=== PATIENT | male | born 2000 | race Caucasian/White ===

== ENCOUNTER 2019-10-26 13:15 | Outpatient (CLI) | payer SELFPAY ==
[~2019-10-26] VITALS: Ht 177 cm; Wt 78.7 kg
[~2019-10-26 13:15] MED LIST changes: -CEPH-507 PO; -TRAM50TA3 PO
[2019-10-26 13:28] VITALS: BP 125/78
--- NOTE | 2019-10-26 13:56 | Diagnostic Imaging Report ---
INDICATION: Preop for orchiectomy. Time of exam 1:55 PM No prior studies are available for comparison. The heart size is normal. The pulmonary vascularity is unremarkable. The lungs are clear. No infiltrate, effusion or pneumothorax is detected. IMPRESSION: No acute cardiopulmonary process is detected. Dictated by: Dictated on workstation # [id number]
[2019-10-26 13:59] LABS: BASOPHILS # (AUTO) 0.1 10^3/uL (0.0-0.1); BASOPHILS % (AUTO) 1 % (0-10); EOSINOPHILS # (AUTO) 0.6 10^3/uL (0.0-0.3); EOSINOPHILS % (AUTO) 12 % (0-10); HEMATOCRIT 42 % (40-54); HEMOGLOBIN 13.4 G/DL (13.3-17.7); LYMPHOCYTES # (AUTO) 1.6 X 10^3 (1.0-4.0); LYMPHOCYTES % (AUTO) 30 % (12-44); MEAN CORPUSCULAR HEMOGLOBIN 29 PG (25-34); MEAN CORPUSCULAR HGB CONC 32 G/DL (32-36); MEAN CORPUSCULAR VOLUME 91 FL (80-99); MEAN PLATELET VOLUME 10.3 FL (7.4-10.4); MONOCYTES # (AUTO) 0.5 X 10^3 (0.0-1.0); MONOCYTES % (AUTO) 9 % (0-12); NEUTROPHILS # (AUTO) 2.6 X 10^3 (1.8-7.8); NEUTROPHILS % (AUTO) 48 % (42-75); PLATELET COUNT 298 10^3/uL (130-400); RED CELL DISTRIBUTION WIDTH 13.3 % (10.0-14.5); WHITE BLOOD COUNT 5.3 10^3/uL (4.3-11.0)
[2019-10-26 14:20] LABS: ALANINE AMINOTRANSFERASE 19 U/L (0-55); ALBUMIN 4.6 GM/DL (3.2-4.5); ALKALINE PHOSPHATASE 50 U/L (40-136); BILIRUBIN,TOTAL 0.3 MG/DL (0.1-1.0); BUN/CREATININE RATIO 9; CALCIUM 9.3 MG/DL (8.5-10.1); CARBON DIOXIDE 26 MMOL/L (21-32); CHLORIDE 104 MMOL/L (98-107); CREATININE SERUM 1.03 MG/DL (0.60-1.30); GFR ESTIMATED > 60; GLUCOSE 91 MG/DL (70-105); POTASSIUM 4.3 MMOL/L (3.6-5.0); SODIUM 139 MMOL/L (135-145); TOTAL PROTEIN 7.3 GM/DL (6.4-8.2)
[2019-10-29] MEDS ORDERED: TRAM50TA3 PO (08:24)
[2019-10-29] MEDS ORDERED: CEPH-507 PO (08:24)
== END 2019-10-26 15:30 | disposition home or self-care (01) ==
LOC: PREOP 13:15
PROVIDERS: ATTEND Urology
DX: Z01.812 Encounter for preprocedural laboratory examination (principal); Z01.811 Encounter for preprocedural respiratory examination; N50.89 Other specified disorders of the male genital organs
CPT/HCPCS: 36415; 71046; 80053; 82105; 83615; 84702; 85025

== ENCOUNTER → 2019-10-26 | Outpatient (CLI) | payer SELFPAY ==
[~2019-10-26] MED LIST: CEPH-507 PO; HYDR-3730 PO; TRAM50TA3 PO
--- NOTE | 2019-10-26 11:39 | Diagnostic Imaging Report ---
PROCEDURE: US Scrotum. TECHNIQUE: Multiple real-time grayscale images were obtained over the scrotum in various projections bilaterally. INDICATION: Relatively painless palpable mass in the upper right testis. Corresponding to the provided clinical history there is a solid heterogeneous relatively hypoechoic mass in the upper pole of the right testicular parenchyma, that mass measures 1.9 x 1.7 x 2.2 cm, and is suspicious for malignancy. Urological consultation needed if not already performed. The contralateral left testicle is homogenous normal in echotexture and showing normal color Doppler blood flow. No testicular calcifications are found. No extratesticular pathology. Epididymis are unremarkable. IMPRESSION: A solid hypoechoic intraparenchymal vascularized upper pole right testicular mass 2.2 cm suspicious for malignancy, urological consultation needed. Dictated by: Dictated on workstation # [id number]
== END ==
LOC: RAD 10:09
PROVIDERS: ATTEND Internal Medicine
DX: N50.811 Right testicular pain (principal)
CPT/HCPCS: 76870

== ENCOUNTER → 2019-11-13 | Outpatient (CLI) | payer SELFPAY ==
[~2019-11-13] MED LIST changes: +CATHETER FLUSH 10 ML SYR IV PRN; +CEPH-507 PO; +HOLD METFORMIN - RECEIVED CONTRAST 20 ML VIAL IV SCH; +IOHEXOL 350 MG/ML 100 ML (OMNIPAQUE 350) VIAL IV ONE; +NS 100 ML (IVPB) BAG IV ONE; +TRAM50TA3 PO
--- NOTE | 2019-11-13 16:08 | Diagnostic Imaging Report ---
PROCEDURE: CT chest with contrast, CT abdomen and pelvis with and without contrast. TECHNIQUE: Pre and post intravenous contrast axial imaging of the abdomen and pelvis and post contrast axial imaging of the chest were performed. Auto Exposure Controls were utilized during the CT exam to meet ALARA standards for radiation dose reduction. INDICATION: History of testicular cancer. COMPARISON: 10/13/2014. FINDINGS: CT CHEST: The heart is normal in size. There is no pericardial effusion. There is a subcarinal mass which measures up to 5.0 x 4.7 cm on axial imaging, and 3.8 cm craniocaudal. This lies just to the right and anterior to the esophagus, superior to the left atrium. No pleural effusion or pneumothorax is seen. No pulmonary nodules or consolidation are seen. No central endobronchial lesion is seen. CT ABDOMEN/PELVIS: The liver demonstrates no focal lesions. The spleen appears normal. The pancreas appears normal. The adrenal glands are unremarkable. There is a circumscribed hypodense lesion in the inferior left kidney measuring 1 cm, most likely a cyst. No hydronephrosis or enhancing masses are seen. The bowel loops are nondistended without obstruction seen. There is moderate stool in the colon. No free air or free fluid is seen. The appendix is not seen. The stomach is moderately distended with fluid and ingested material. No pelvic or retroperitoneal adenopathy is seen. There is scarring along the right inguinal region. IMPRESSION: 1. Subcarinal mass in the mediastinum measuring up to 5 cm. This is concerning for metastasis given the patient's history. 2. No masses or lymphadenopathy seen in the abdomen/pelvis. Dictated by: Dictated on workstation # [id number]
== END ==
LOC: RAD 14:12
PROVIDERS: ATTEND Internal Medicine Hematology & Oncology
DX: C62.11 Malignant neoplasm of descended right testis (principal); R22.2 Localized swelling, mass and lump, trunk
CPT/HCPCS: 71260; 74178

== ENCOUNTER 2019-11-21 13:23 | Outpatient (RCR) | payer SELFPAY ==
[~2019-11-21] VITALS: Ht 177 cm; Wt 78.7 kg
[~2019-11-21 13:23] MED LIST changes: -HYDR-83 PO; -RT-ALBUTEROL SULF 2.5 MG/3 ML PRE-MIX VIAL INH ONE
[2019-11-22] MEDS ORDERED: HYDR-3812 PO (13:59)
== END 2020-02-19 | disposition home or self-care (01) ==
LOC: PREOP 13:23
PROVIDERS: ATTEND Surgery
DX: Z01.818 Encounter for other preprocedural examination (principal)

== ENCOUNTER → 2019-11-21 | Outpatient (CLI) | payer SELFPAY ==
[~2019-11-21] MED LIST changes: -CATHETER FLUSH 10 ML SYR IV PRN; -HOLD METFORMIN - RECEIVED CONTRAST 20 ML VIAL IV SCH; +HYDR-83 PO; -IOHEXOL 350 MG/ML 100 ML (OMNIPAQUE 350) VIAL IV ONE; -NS 100 ML (IVPB) BAG IV ONE; +RT-ALBUTEROL SULF 2.5 MG/3 ML PRE-MIX VIAL INH ONE
== END ==
LOC: RT 08:02
PROVIDERS: ATTEND Internal Medicine Hematology & Oncology
DX: C62.11 Malignant neoplasm of descended right testis (principal)
CPT/HCPCS: 94060; 94726; 94729

== ENCOUNTER 2019-11-22 12:41 | Day surgery (SDC) | payer SELFPAY ==
[2019-11-22] VITALS (7 sets, daily range): BP systolic 101–114; BP diastolic 58–80
[~2019-11-22] VITALS: Ht 177 cm; Wt 78.7 kg
[2019-11-22] MEDS ORDERED: ceFAZolin 2 GM IV Premixed 50 ML IV ONE (13:00)
[2019-11-22] MEDS ORDERED: LACTATED RINGERS 1,000 ML IV SCH (13:30)
--- NOTE | 2019-11-22 13:57 | Progress Note-Pre Operative ---
Pre-Operative Progress Note H&P Reviewed The H&P was reviewed, patient examined and no changes noted. Date Seen by Provider: November 22, 2019 Time Seen by Provider: 13:55 Date H&P Reviewed: November 22, 2019 Time H&P Reviewed: 13:50 Pre-Operative Diagnosis: Testicular cancer DORIS WISDOM ELECTRICAL AUTOMATION ENGINEER November 22, 2019 13:57
[2019-11-22] MEDS ORDERED: HYDR-83 PO (13:59)
--- NOTE | 2019-11-22 13:59 | Discharge Inst-Surgical ---
D/C Lap Instructions-KIDO Reconcile Patient Problems Problems Reviewed?: Yes New, Converted, or Re-Newed RX: RX on Chart Follow Up Appt in 2 weeks Activity as tolerated No driving for 24 hours No driving while on pain medications Incentive Spirometry use every 2 hours while awake Regular Diet Symptoms to Report: Fever over 101 degree F, Nausea/Vomiting Infection Signs and Symptoms to report: Increased redness, Foul odor of wound, Increased drainage Bathing instructions: May shower Operative Area Clean/Dry; Keep incision clean/dry If any problems/questions: Contact your physician or go to Emergency Room DORIS WISDOM APRN November 22, 2019 13:59
[2019-11-22] MEDS ORDERED: ONDANSETRON 4 MG/2 ML (SDV) Z0FRAN IVP PRN ×2 (14:00→16:45)
[2019-11-22] MEDS ORDERED: ACETAMINOPHEN 325 MG TABLET PO PRN (14:00)
[2019-11-22] MEDS ORDERED: morphine INJ 10 MG/ML 1ML (SYR OR VIAL) IVP PRN (14:00)
[2019-11-22] MEDS ORDERED: HYDROcodone/APAP 5 MG/325 MG (LORTAB) TAB PO ONE (14:00)
--- OUTSIDE RECORDS SUMMARY | 2019-11-22 14:02 | XMS REPORT | Clinical Summary ---
Author Author [facility] Organization [facility] Address Unknown Phone Unavailable Care Team Providers Care Buffet Waiter/Waitress Name Role Phone Liana Cedillo MD Unavailable Immanuel Reza MD Unavailable Rajni Jauregui DO PCP Source Comments Some departments are not documenting in the electronic medical record. If you d o not see the information that you expected, contact Release of Information in [facility] [employer] Information Management department at [phone] for further assistan ce in locating additional records.[facility] Allergies No Known Allergies Medications End Date Status Medication Sig Dispensed Refills Start Date Active ibuprofen (ADVIL PO) Take by 0 mouth. Active tramadol HCl (TRAMADOL Take by 0 PO) mouth. 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); Encounter for fertility preservation procedure 11/19/2019 Orders Only Oncology Dany Horne MD 11/15/2019 Office Visit Oncology Telehealth Dany Horne MD Navigation Assessment 11/15/2019 Telephone Oncology 11/13/2019 Hospital Radiology Encounter from Last 3 Months Family History Medical History Relation Name Comments Stroke Father Relation Name Status Comments Father Social History Date Tobacco Use Types Packs/Day Years Used Never Smoker Smokeless Tobacco: Never Used Drinks/Week oz/Week Comments Alcohol Use No Alcohol Habits Answer Date Recorded How often do you have a drink containing alcohol? Never 08/08/2018 How many drinks containing alcohol do you have on No t asked a typical day when you are drinking? How often do you have six or more drinks on one Not asked occasion? Sex Assigned at Date Recorded Male 11/19/2019 11:46 AM CDT Industry Job Start Date Occupation Not on file Not on file Not on file Travel End Travel History Travel Start No recent travel history available. Last Filed Vital Signs Reading Time Taken Comments Vital Sign 107/74 11/15/2019 3:44 PM CDT Blood Pressure 74 11/15/2019 3:44 PM CDT Pulse - - Temperature - - Respiratory Rate - - Oxygen Saturation - - Inhaled Oxygen Concentration 78.5 kg (173 lb) 11/15/2019 3:44 PM CDT Per patient Weight 177.8 cm (5' 10") 08/08/2018 11:37 AM TOWEL ROLLING MACHINE OPERATOR Height 24.82 08/08/2018 11:37 AM TOWEL ROLLING MACHINE OPERATOR Body Mass Index Plan of Treatment Health Maintenance Due Date Last Done Comments HPV VACCINES (1 - Male 2009 2-dose series) HIV SCREENING 2013 DTAP/TDAP VACCINES (1 - 2016 Tdap) HEPATITIS C SCREENING 2016 PHYSICAL (COMPREHENSIVE) 2016 EXAM INFLUENZA VACCINE 04/03/2020 MENINGOCOCCAL VACCINE Aged Out No longer eligib le based on patient's age to (Isis GERARD) complete this topic Procedures Comments Procedure Name Priority Date/Time Associated Diag nosis CT CHEST/ABD/PEL EXTERNAL Routine 11/13/2019 IMAGING 12:00 AM CDT from Last 3 Months Results * CT CHEST/ABD/PEL EXTERNAL IMAGING (11/13/2019 12:00 AM CDT) Specimen Narrative Performed At This order has been auto finalized and does not contain a result. from Last 3 Months Advance Directives Patient Meeting Facilitator Explanation Type Date Recorded Advance Directive/DPOA
--- OUTSIDE RECORDS SUMMARY | 2019-11-22 14:03 | XMS REPORT | Encounter Summary ---
Author Author [facility] Organization [facility] Address Unknown Phone Unavailable Care Team Providers Care Veterinary Assistant Technician Name Role Phone Liana Cedillo MD Unavailable Immanuel Reza MD Unavailable Rajni Jauregui DO PCP Reason for Visit * Reason Comments Navigation Assessment Encounter Details Care Team Description Date Type Department Dany Horne MD [address] [place] [address] [phone] Navigation Assessment 11/15/[address] [address] Social History Date Tobacco Use Types Packs/Day [...] occasion? Sex Assigned at Date Recorded Male Industry Job Start Date Occupation Not on file Not on file Not on file Travel End Travel History Travel Start No recent travel history available. documented as of this encounter Miscellaneous Notes * Telephone Encounter - Lexy Guzman RN - 11/15/2019 8:53 AM CDT Navigation Intake Assessment Document Patient Name: Nate Jeong : 2000 Insurance: Self Pay Future Appointments Date Time Provider Department Center 11/15/2019 4:20 PM Dany Horne MD [facility] Exam Diagnosis & Reason for Visit: Testicular Cancer Second Opinion Physician Info: Referring Physician: Liana Cedillo Patient Care Team: Rajni Jauregui DO as PCP - General (Internal Medicine) Liana Cedillo MD (Hematology & Oncology) Immanuel Reza MD (Urology) Location of Films: PACS Location of Pathology: Report emailed with records History of Present Illness: Mr. Jeong is a 19 year old found to have a right domenica ticular mass suspicious for malignancy and treated with right orchiectomy 0. 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 Current recom mendation is for chemotherapy, however pre-treatment CT identified a 5 cm subcar inal mass prompting Dr. Cedillo to request second opinion from Dr. Horne. Abdom en and pelvis were noted to be without signs of metastatic disease. Tumor marke rs did decrease after orchiectomy but AFP remains elevated at 15, beta-hcg is cu rrently <3. Patient reports no significant medical history. Patient reports that he vapes occasionally. Pathology: 10-29-19 Testis, right, radical orchiectomy - Mixed nonseminomatous g erm cell tumor, comprising embryonal carcinoma, yolk sac tumor, teratoma and foc al synctiotrophoblastic; tumor confined to testis without rete testis invasion; margins negative for neoplasm. Imagin11-13-19 CT CAP W/WO - Impression: 1. Subcarinal mass in the mediasti num measuring up to 5 cm. This is concerning for metastasis given the patient's history. 2. No masses or lymphadenopathy seen in the abdomen/pelvis. Tumor Markers: 11-12-19 11-08-19 10-26-19 AFP 15.6 85.4 Hcg Tumor <3 140 LDH 126 Prior Treatment (XRT, Surgery, Chemotherapy): Right Orchiectomy 10-29-19 Comments: This RN spoke to patient and scheduled Telehealth visit. Telehealth education provided. Gave contact information for further questions or concerns. Appointment information sent to patient via mail. CAROLE Regalado NEEDS Assessment: Genetic Counseling: Genetic Assessment: No identified risk factors Nutrition: Recent Weight Loss Without Trying?: No Social & Financial: Social and Financial Assessment: Insurance Concerns;Financial Concerns;Reports a dequate support system Tobacco assessment last 30 days: Patient has not used tobacco products within th e last 30 days Social and Financial Intervention: Referral placed to Financial Counselor;Financ ial Counselor completed screening and patient education Spiritual & Emotional: Spiritual and Emotional Assessment: Reports adequate support system Physical: Fall Risk: None identified Communication: Communication Barrier: No Onc Fertility: Onc Fertility Assessment: Not applicable Additional Education: Additional Education Documented: No documented in this encounter Plan of Treatment Not on filedocumented as of this encounter Visit Diagnoses Not on filedocumented in this encounter
--- OUTSIDE RECORDS SUMMARY | 2019-11-22 14:03 | XMS REPORT | Encounter Summary ---
Author Author [facility] Organization [facility] Address Unknown Phone Unavailable Care Team Providers Care Pickler Helper Name Role Phone Liana Cedillo MD Unavailable Immanuel Reza MD Unavailable Rajni Jauregui DO PCP Reason for Visit * Reason Comments Follow Up * Consult, Test & Treat (Routine) Referred By Contact Referred To Contact Status Reason Specialty Diagnoses / Procedures Liana Cedillo MD [address] [place] [address] [place] [address] [place] [id number] No Auth Needed Oncology Diagnoses Testicular cancer Encounter Details Care Team Description [place] [address] [place] [address] [phone] 11/15/2019 Office Visit The [facility] [address] [address] Social History Date Tobacco Use Types Packs/Day [...] history available. documented as of this encounter Last Filed Vital Signs Reading Time Taken Comments Vital Sign 107/74 11/15/2019 3:44 PM CDT Blood Pressure 74 11/15/2019 3:44 PM CDT Pulse - - Temperature - - Respiratory Rate - - Oxygen Saturation - - Inhaled Oxygen Concentration 78.5 kg (173 lb) 11/15/2019 3:44 PM CDT Per patient Weight - - Height 24.82 08/08/2018 11:37 AM TEST PREPARER Body Mass Index documented in this encounter Plan of Treatment Not on filedocumented as of this encounter Visit Diagnoses Not on filedocumented in this encounter
--- OUTSIDE RECORDS SUMMARY | 2019-11-22 14:03 | XMS REPORT | Encounter Summary ---
Author Author [facility] Organization [facility] Address Unknown Phone Unavailable Care Team Providers Care Core Driller Name Role Phone Liana Cedillo MD Unavailable Immanuel Reza MD Unavailable Rajni Jauregui DO PCP Reason for Referral * Consult, Test & Treat (Urgent) Referred By Contact Referred To Contact Status Reason Specialty Diagnoses / Procedures Dany Horne MD [address] [place] [address] [employer] [address] [place] [address] Pending Review Specialty Services Reproductive Diagnoses Required Care 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 documented as of this encounter Plan of Treatment Order Schedule Name Type Priority Associated Diag noses Ordered: 11/19/2019 SEMEN COLLECTION FOR Pathology Routine Nonsemino matous germ cell CRYOPRESERVATION tumor of testicle (HCC) Encounter for fertility preservation procedure Order Schedule Name Type Priority Associated Diag noses Ordered: 11/19/2019 AMB REFERRAL TO FERTILITY Outpatient Routine Nons eminomatous germ cell PRESERVATION Referral tumor of testicle ( HCC) Encounter for fertility preservation procedure documented as of this encounter Visit Diagnoses Diagnosis Nonseminomatous germ cell tumor of test icle (HCC) Encounter for fertility preservation pr ocedure documented in this encounter
--- OUTSIDE RECORDS SUMMARY | 2019-11-22 14:03 | XMS REPORT | Encounter Summary ---
Author Author [facility] Organization [facility] Address Unknown Phone Unavailable Care Team Providers Care Party Plan Sales Consultant Name Role Phone No Pcp, Na PCP Unavailable Encounter Details Care Team Description Date Type Department 11/13/2019 [facility] [address] [address] Social History Date Tobacco Use Types Packs/Day [...] history available. documented as of this encounter Medications at Time of Discharge Start Date End Date Medication Sig Dispensed Refills ibuprofen (ADVIL PO) Take by 0 mouth. tramadol HCl (TRAMADOL Take by 0 PO) mouth. documented as of this encounter Plan of Treatment Not on filedocumented as of this encounter Procedures Comments Procedure Name Priority Date/Time Associated Diag nosis CT CHEST/ABD/PEL EXTERNAL Routine 11/13/2019 IMAGING 12:00 AM CDT documented in this encounter Results * CT CHEST/ABD/PEL EXTERNAL IMAGING (11/13/2019 12:00 AM CDT) Specimen Narrative Performed At This order has been auto finalized and does not contain a result. documented in this encounter Visit Diagnoses Not on filedocumented in this encounter
--- OUTSIDE RECORDS SUMMARY | 2019-11-22 14:03 | XMS REPORT | Continuity of Care Document ---
Author Organization Unknown Address Unknown Phone Unavailable Allergies Active Description Code Type Severity Reaction Onset Reported/Identified Relationship to Patient Clinical Status Yes No Known Drug Allergies [id number] Drug Allergy Unknown N/A 11/21/2019 Medications There is no data. Problems Date Dx Coded Attending Type Code Diagnosis Diagnosed By 10/14/2014 STEPHANI DAWKINS MD Ot 540.9 ACUTE APPENDICITIS NOS 10/26/2019 JEN CESPEDES MD Ot N50.8 9 OTHER SPECIFIED DISORDERS OF THE MALE GE 10/26/2019 JEN CESPEDES MD Ot Z01.8 11 ENCOUNTER FOR PREPROCEDURAL RESPIRATORY 10/26/2019 JEN CESPEDES MD Ot Z01.8 12 ENCOUNTER FOR PREPROCEDURAL LABORATORY E 10/29/2019 JEN CESPEDES MD Ot C62.9 1 MALIG NEOPLM OF RIGHT TESTIS, UNSP DESCE 10/29/2019 JEN CESPEDES MD Ot Z80.7 FAM HX OF MALIG NEOPLM OF LYMPHOID, LUCAS 10/29/2019 JEN CESPEDES MD Ot Z82.4 9 FAMILY HX OF ISCHEM HEART DIS AND OTH DI 10/29/2019 JEN CESPEDES MD Ot Z83.3 FAMILY HISTORY OF DIABETES MELLITUS 10/29/2019 OVIDIO ZHANG DO Ot N50.81 1 RIGHT TESTICULAR PAIN 10/30/2019 JEN CESPEDES MD Ot N50.8 9 OTHER SPECIFIED DISORDERS OF THE MALE GE 10/30/2019 JEN CESPEDES MD Ot Z01.8 11 ENCOUNTER FOR PREPROCEDURAL RESPIRATORY 10/30/2019 JEN CESPEDES MD Ot Z01.8 12 ENCOUNTER FOR PREPROCEDURAL LABORATORY E 11/06/2019 OVIDIO ZHANG DO Ot N50.81 1 RIGHT TESTICULAR PAIN 11/07/2019 JEN CESPEDES MD Ot C62.9 1 MALIG NEOPLM OF RIGHT TESTIS, UNSP DESCE 11/07/2019 JEN CESPEDES MD Ot Z80.7 FAM HX OF MALIG NEOPLM OF LYMPHOID, LUCAS 11/07/2019 JEN CESPEDES MD, Ot Z82.4 9 FAMILY HX OF ISCHEM HEART DIS AND OTH DI 11/07/2019 JEN CESPEDES MD, Ot Z83.3 FAMILY HISTORY OF DIABETES MELLITUS 11/12/2019 OVIDIO ZHANG DO Ot N50.81 1 RIGHT TESTICULAR PAIN 11/14/2019 NELSONLIZETH Ot C62.11 MALIGNANT NEOPLASM OF DESCENDED RIGHT TE 11/14/2019 LIZETH DAMON Ot R22.2 LOCALIZED SWELLING, MASS AND LUMP, TRUNK Procedures There is no data. Results Test Result Range Complete blood count (CBC) with automate d white blood cell (WBC) differential - 10/26/19 13:45 Blood leukocytes automated count (number/volume) 5.3 10*3/uL 4.3-11.0 Blood erythrocytes automated count (number/volume) 4.62 10*6/uL 4.35-5.85 Venous blood hemoglobin measurement (mass/volume) 13.4 g/dL 13.3-17.7 Blood hematocrit (volume fraction) 42 % 40-54 Automated erythrocyte mean corpuscular volume 91 [ foz_us] 80-99 Automated erythrocyte mean corpuscular h emoglobin (mass per erythrocyte) 29 pg 25-34 Automated erythrocyte mean corpuscular h emoglobin concentration measurement (mass/volume) 32 g/dL 32-36 Automated erythrocyte distribution width ratio 13. 3 % 10.0- 14.5 Automated blood platelet count (count/volume) 298 10*3/uL 130-400 Automated blood platelet mean volume measurement 10.3 [foz_us] 7.4-10.4 Automated blood neutrophils/100 leukocytes 48 % 42-75 Automated blood lymphocytes/100 leukocytes 30 % 12-44 Blood monocytes/100 leukocytes 9 % 0-12 Automated blood eosinophils/100 leukocytes 12 % 0-10 Automated blood basophils/100 leukocytes 1 % 0-10 Blood neutrophils automated count (number/volume) 2.6 10*3 1.8-7.8 Blood lymphocytes automated count (number/volume) 1.6 10*3 1.0-4.0 Blood monocytes automated count (number/volume) 0. 5 10*3 0.0-1.0 Automated eosinophil count 0.6 10*3/uL 0 .0-0.3 Automated blood basophil count (count/volume) 0.1 10*3/uL 0.0-0.1 Comprehensive metabolic panel - 10/26/19 13:45 Serum or plasma sodium measurement (moles/volume) 139 mmol/L 135-145 Serum or plasma potassium measurement (moles/volume) 4.3 mmol/L 3.6-5.0 Serum or plasma chloride measurement (moles/volume) 104 mmol/L 98-107 Carbon dioxide 26 mmol/L 21-32 Serum or plasma anion gap determination (moles/volume) 9 mmol/L 5-14 Serum or plasma urea nitrogen measurement (mass/volume ) 9 mg/dL 7-18 Serum or plasma creatinine measurement (mass/volume) 1.03 mg/dL 0.60-1.30 Serum or plasma urea nitrogen/creatinine mass ratio 9 NRG Serum or plasma creatinine measurement w ith calculation of estimated glomerular filtration rate > NRG Serum or plasma glucose measurement (mass/volume) 91 mg/dL 70-105 Serum or plasma calcium measurement (mass/volume) 9.3 mg/dL 8.5-10.1 Serum or plasma total bilirubin measurement (mass/volu me) 0.3 mg/dL 0.1-1.0 Serum or plasma alkaline phosphatase cassandra surement (enzymatic activity/volume) 50 U/L 40-136 Serum or plasma aspartate aminotransfera se measurement (enzymatic activity/volume) 18 U/L 5-34 Serum or plasma alanine aminotransferase measurement (enzymatic activity/volume) 19 U/L 0-55 Serum or plasma protein measurement (mass/volume) 7.3 g/dL 6.4-8.2 Serum or plasma albumin measurement (mass/volume) 4.6 g/dL 3.2-4.5 Serum ragweed IgE antibody assay - 10/25 13:45 Serum ragweed IgE antibody assay 107 U/L 125-220 Serum or plasma gbmqa-6-ixbyzkrrzrm.tumo r marker measurement (mass/volume) - 10/26/19 13:45 Serum or plasma bpnfp-1-mgunjcxjgbw.tumo r marker measurement (mass/volume) 85.4 % 0.0-8.8 Serum or plasma choriogonadotropin.tumor marker measurement (units/volume) - 10/26/19 13:45 Serum or plasma choriogonadotropin.tumor marker measurement (mass/volume) 140 % 0-4 Methicillin resistant Staphylococcus aur eus (MRSA) screening culture - 10/29/19 06:40 Methicillin resistant Staphylococcus aureus (MRSA) scr eening culture NEG NRG Encounters ACCT No. Visit Date/Time Discharge Status Pt. Type Provider Facility Loc./Unit Complaint [id number] 11/14/2019 12:57:00 23:59:59 CLS Outpatient LIZETH DAMON [facility] ONC [id number] 11/13/2019 14:12:00 23:59:59 CLS Outpatient LIZETH DAMON [facility] RAD TESTICULAR CANCER [id number] 10/29/2019 08:00:00 23:59:59 CLS Preadmit JEN CESPEDES MD, V [facility] RIGHT TESTICULAR MASS [id number] 10/29/2019 06:33:00 12:30:00 DIS Outpatient JEN CESPEDES MD [facility] RIGHT TESTICULAR MASS [id number] 10/26/2019 10:09:00 23:59:59 CLS Outpatient OVIDIO ZHANG DO [facility] RAD RT TESTICULAR PAIN [id number] 10/26/2019 13:15:00 15:30:00 DIS Outpatient JEN CESPEDES MD [facility] PREOP RIGHT TESTICULAR MASS [id number] 10/13/2014 19:47:00 10:23:00 DIS Outpatient STEPHANI DAWKINS MD [facility] ACUTE APPENDICITIS [id number] 11/28/2019 14:00:00 P EN Preadmit LI[facility]ETH DAM[facility] RIGHT TESTICULAR CANCER [id number] 11/22/2019 12:15:00 P EN Preadmit STEPHANI DAWKINS MD [facility] SDC TESTICULAR CANCER [id number] 11/21/2019 13:23:[address] Outpatient STEPHANI DAWKINS MD [facility] PREOP TESTICULAR CANCER [id number] 11/21/2019 08:02:[address] Outpatient LIZETH DAMON [facility] RT RIGHT TESTICULAR CANCER
[2019-11-22] MEDS ORDERED: BUP/EPI 0.5% 1:200,000 (SENSORCAINE) 30 ML VIAL ONE (14:05)
[2019-11-22] MEDS ORDERED: HEParin (CENTRAL IV FLUSH) 500 UNIT/5 ML SYR ONE (14:05)
[2019-11-22] MEDS ORDERED: fentaNYL INJECTION 100 MCG/2 ML AMP ONE (15:45)
[2019-11-22] MEDS ORDERED: PROPOFOL INJECTION 50 ML IV ONE (15:45)
[2019-11-22] MEDS ORDERED: MIDAZOLAM 2 MG/2 ML (VERSED) VIAL ONE (15:46)
[2019-11-22] MEDS ORDERED: 0.9% SODIUM CHLORIDE PF INJ 20 ML VIAL ONE (15:48)
--- NOTE | 2019-11-22 16:22 | Progress Note-Post Operative ---
Post-Operative Progess Note Surgeon (s)/Home Health Lpn (s) Surgeon STEPHANI DAWKINS MD Home Health Lpn: [place] VAULT MANAGER Pre-Operative Diagnosis Testicular cancer Post-Operative Diagnosis same Procedure & Operative Findings Date of Procedure 11/22/19 Procedure Performed/Findings right groshong implantable catheter placement under flouroscopy. Anesthesia Type MAC with local Estimated Blood Loss Estimated blood loss (mL): minimal Specimens/Packing Specimens Removed none STEPHANI DAWKINS MD November 22, 2019 16:21
--- NOTE | 2019-11-22 16:41 | Anesthesia-General Post-Op ---
MAC Patient Condition Mental Status/LOC: Same as Preop Cardiovascular: Satisfactory Nausea/Vomiting: Absent Respiratory: Satisfactory Pain: Controlled Complications: Absent Post Op Complications Complications None Follow Up Care/Instructions Patient Instructions None needed. Anesthesiology Discharge Order Discharge Order Patient is doing well, no complaints, stable vital signs, no apparent adverse anesthesia problems. No complications reported per nursing. GREGORIA SLAUGHTER CRNA November 22, 2019 16:41
[2019-11-22] MEDS ORDERED: morphine INJ 10 MG/ML 1ML (SYR OR VIAL) IVP ONE (16:45)
[2019-11-22] MEDS ORDERED: MEPERIDINE (DEMEROL) INJ 50 MG/ML IVP ONE (16:45)
--- NOTE | 2019-11-22 16:48 | Diagnostic Imaging Report ---
EXAMINATION: Chest radiograph, portable AP view. DATE: 11/22/2019 4:44 PM. INDICATION: 19-year-old male, postop. COMPARISON: October 26, 2019. FINDINGS: There is a right-sided port catheter with tip overlying the mid SVC. Stable overall appearance of the cardiomediastinal silhouette. There is no identified pneumothorax. There is no large pleural effusion. There is no identified focal airspace consolidation. IMPRESSION: No identified acute cardiopulmonary abnormality. Dictated by: Dictated on workstation # [id number]
--- NOTE | 2019-11-22 17:10 | NUR ---
RECEIVED PT IN ROOM 412, AND REPORT FROM CARLOS LAMPERSONAL BANKER. PT HAS STABLE VITALS, NO PAIN REPORTED AND IS HAVING A SNACK OF SALTINES AND SPRITE. PT AND MOTHER ARE IN AN UPBEAT MOOD AT THIS TIME
--- NOTE | 2019-11-22 18:00 | Diagnostic Imaging Report ---
INDICATION: Port-A-Cath. EXAMINATION: Fluoroscopy utilized during Port-A-Cath placement. FINDINGS: Fluoroscopy time 205 seconds. IMPRESSION: Fluoroscopy utilized during catheter placement. Dictated by: Dictated on workstation # [id number]
--- NOTE | 2019-11-22 20:36 | OPERATIVE REPORT ---
DATE OF SERVICE: 11/22/2019 ATTENDING PRIMARY CARE PHYSICIAN: Dr. Jauregui. 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 POSTOPERATIVE DIAGNOSIS: Nonseminomatous left testicular cancer. PROCEDURE: Placement of right subclavian Groshong implantable catheter under fluoroscopy. SURGEON: Stephani Dawkins MD. GRANULATOR OPERATOR: Bry Ayala APRN. ANESTHESIA: MAC with local. ESTIMATED BLOOD LOSS: Minimal. FINDINGS: Catheter tip at superior vena caval -- right atrial junction. DISPOSITION: The patient tolerated the procedure well. 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 He underwent further workup, which also did show mediastinal lymph nodes. He will undergo chemotherapy and will require Groshong implantable catheter. DESCRIPTION OF PROCEDURE: The patient was brought to the operating room, laid supine on the table. After adequate IV pain and sedative medications and monitored anesthesia care, the chest and neck were prepped and draped in standard surgical fashion. The left subclavian region was then anesthetized using 1% lidocaine with epinephrine. The left subclavian vein was then cannulated with drawing of venous blood. The guidewire was then inserted under fluoroscopy. Cannulating needle removed and a skin incision made using 15 blade. The dilator and sheath were then introduced over the guidewire and the guidewire and dilator were then removed. The Groshong catheter was then placed through the sheath until the catheter tip was at the superior vena cava -- right atrial junction. The sheath was then removed. The inner wire within the catheter was then removed and the catheter cut down to size and port placed onto the catheter. The subcutaneous chest reservoir was then created by extending the skin incision laterally and a plane created between the subcutaneous fat and the anterior pectoralis fascia using blunt dissection as well as electrocautery with visualization of good hemostasis. The port was then placed into the reservoir and sutured to the anterior pectoralis fascia using interrupted 3-0 Vicryl sutures. The subcutaneous tissue was then reapproximated using 3-0 Vicryl interrupted sutures and the skin was closed using 4-0 Monocryl running subcuticular suture. Wound was then cleaned and covered with Dermabond. The patient tolerated the procedure well. We will get a post-procedure chest x-ray and once placement confirmed, the catheter may be accessed and used at any time. Job ID: [id number] DocumentID: [id number] Dictated Date: 11/22/2019 16:29:03 [employer] Car Clerk Date: 11/22/2019 20:35:35 Dictated By: STEPHANI DAWKINS MD
== END 2019-11-22 18:45 | disposition home or self-care (01) ==
LOC: SDC 12:41 → 4TH 17:10 → SDC 18:36
PROVIDERS: ATTEND Surgery
DX: C62.11 Malignant neoplasm of descended right testis (principal); J30.9 Allergic rhinitis, unspecified; Z90.89 Acquired absence of other organs; Z90.79 Acquired absence of other genital organ(s)
CPT/HCPCS: 71045; 76000; 87081; 87635

== ENCOUNTER → 2019-11-28 | Outpatient (CLI) | payer SELFPAY ==
[~2019-11-28] MED LIST changes: +HYDR-83 PO
== END ==
LOC: CARD 14:01
PROVIDERS: ATTEND Internal Medicine Hematology & Oncology
DX: I34.0 Nonrheumatic mitral (valve) insufficiency (principal); C62.11 Malignant neoplasm of descended right testis; Z51.81 Encounter for therapeutic drug level monitoring
CPT/HCPCS: 93306

== ENCOUNTER → 2020-01-09 | Outpatient (CLI) | payer SELFPAY ==
[~2020-01-09] MED LIST changes: +BARIUM SUSPENSION 2.1% (VANILLA SILQ) 450 ML PO ONE; +HOLD METFORMIN - RECEIVED CONTRAST 20 ML VIAL IV SCH; +IOHEXOL 350 MG/ML 100 ML (OMNIPAQUE 350) VIAL IV ONE; +NS 100 ML (IVPB) BAG IV ONE
--- NOTE | 2020-01-09 11:02 | Diagnostic Imaging Report ---
PROCEDURE: CT chest with contrast, CT abdomen and pelvis with and without contrast. TECHNIQUE: Pre and post intravenous contrast axial imaging of the abdomen and pelvis and post contrast axial imaging of the chest were performed. Auto Exposure Controls were utilized during the CT exam to meet ALARA standards for radiation dose reduction. INDICATION: Testicular carcinoma, follow-up. Correlation is made with prior CT from 11/13/2019. CT CHEST: Right chest wall port has tip in the SVC. No axillary lymphadenopathy is detected. The subcarinal mass measures 5.2 x 5.1 cm compared with 5.0 x 4.7 cm. No other mediastinal masses are seen. The liz are unremarkable. No pericardial or pleural fluid is detected. No pulmonary nodules are identified. IMPRESSION: 1. Stable to perhaps very slight increase in size of subcarinal mass when compared with CT from 11/13/2019. No new mass or evidence of pulmonary metastatic disease is detected. CT abdomen and pelvis: No discrete liver mass is detected. The gallbladder is unremarkable. No biliary ductal dilatation is seen. The pancreas and spleen are unremarkable. No adrenal mass is detected. The kidneys are unremarkable. Aorta is nonaneurysmal. No central retroperitoneal or mesenteric lymphadenopathy is detected. The small and large bowel loops are normal caliber. There is no ascites. The bladder and prostate are unremarkable. No pelvic lymphadenopathy is detected. Bony structures are unremarkable. IMPRESSION: Stable CT abdomen and pelvis since exam from 11/13/2019. There is no evidence of abdominal or pelvic lymphadenopathy or metastatic disease. Dictated by: Dictated on workstation # [id number]
== END ==
LOC: RAD 09:58
PROVIDERS: ATTEND Internal Medicine Hematology & Oncology
DX: C62.11 Malignant neoplasm of descended right testis (principal)
CPT/HCPCS: 71260; 74178

== ENCOUNTER 2020-02-01 11:16 | Outpatient (RCR) | payer MEDICAID, OTHER ==
[2019-11-12 10:18] LABS: BASOPHILS # (AUTO) 0.1 10^3/uL (0.0-0.1); BASOPHILS % (AUTO) 1 % (0-10); EOSINOPHILS # (AUTO) 0.9 10^3/uL (0.0-0.3); EOSINOPHILS % (AUTO) 14 % (0-10); HEMATOCRIT 42 % (40-54); HEMOGLOBIN 13.5 G/DL (13.3-17.7); LYMPHOCYTES # (AUTO) 1.5 X 10^3 (1.0-4.0); LYMPHOCYTES % (AUTO) 24 % (12-44); MEAN CORPUSCULAR HEMOGLOBIN 29 PG (25-34); MEAN CORPUSCULAR HGB CONC 32 G/DL (32-36); MEAN CORPUSCULAR VOLUME 91 FL (80-99); MEAN PLATELET VOLUME 10.7 FL (7.4-10.4); MONOCYTES # (AUTO) 0.4 X 10^3 (0.0-1.0); MONOCYTES % (AUTO) 7 % (0-12); NEUTROPHILS # (AUTO) 3.4 X 10^3 (1.8-7.8); NEUTROPHILS % (AUTO) 54 % (42-75); PLATELET COUNT 303 10^3/uL (130-400); RED CELL DISTRIBUTION WIDTH 12.5 % (10.0-14.5); WHITE BLOOD COUNT 6.3 10^3/uL (4.3-11.0)
[2019-11-12 10:43] LABS: ALANINE AMINOTRANSFERASE 21 U/L (0-55); ALBUMIN 4.5 GM/DL (3.2-4.5); ALKALINE PHOSPHATASE 59 U/L (40-136); BILIRUBIN,TOTAL 0.2 MG/DL (0.1-1.0); BUN/CREATININE RATIO 14; CALCIUM 9.3 MG/DL (8.5-10.1); CARBON DIOXIDE 24 MMOL/L (21-32); CHLORIDE 106 MMOL/L (98-107); CREATININE SERUM 0.85 MG/DL (0.60-1.30); GFR ESTIMATED > 60; GLUCOSE 94 MG/DL (70-105); POTASSIUM 4.2 MMOL/L (3.6-5.0); SODIUM 140 MMOL/L (135-145); TOTAL PROTEIN 7.5 GM/DL (6.4-8.2)
[2019-12-03 09:28] LABS: BASOPHILS % (AUTO) 1 % (0-10); EOSINOPHILS # (AUTO) 0.7 10^3/uL (0.0-0.3); EOSINOPHILS % (AUTO) 12 % (0-10); HEMATOCRIT 41 % (40-54); HEMOGLOBIN 13.1 G/DL (13.3-17.7); LYMPHOCYTES # (AUTO) 1.9 X 10^3 (1.0-4.0); LYMPHOCYTES % (AUTO) 33 % (12-44); MEAN CORPUSCULAR HEMOGLOBIN 29 PG (25-34); MEAN CORPUSCULAR HGB CONC 32 G/DL (32-36); MEAN CORPUSCULAR VOLUME 90 FL (80-99); MEAN PLATELET VOLUME 10.3 FL (7.4-10.4); MONOCYTES # (AUTO) 0.4 X 10^3 (0.0-1.0); MONOCYTES % (AUTO) 7 % (0-12); NEUTROPHILS # (AUTO) 2.9 X 10^3 (1.8-7.8); NEUTROPHILS % (AUTO) 49 % (42-75); PLATELET COUNT 266 10^3/uL (130-400); RED CELL DISTRIBUTION WIDTH 12.2 % (10.0-14.5)
[2019-12-03 09:43] LABS: ALANINE AMINOTRANSFERASE 16 U/L (0-55); ALBUMIN 4.4 GM/DL (3.2-4.5); ALKALINE PHOSPHATASE 56 U/L (40-136); BILIRUBIN,TOTAL 0.3 MG/DL (0.1-1.0); BUN/CREATININE RATIO 16; CALCIUM 9.4 MG/DL (8.5-10.1); CARBON DIOXIDE 24 MMOL/L (21-32); CHLORIDE 105 MMOL/L (98-107); CREATININE SERUM 0.92 MG/DL (0.60-1.30); GFR ESTIMATED > 60; GLUCOSE 91 MG/DL (70-105); POTASSIUM 4.1 MMOL/L (3.6-5.0); SODIUM 138 MMOL/L (135-145); TOTAL PROTEIN 7.5 GM/DL (6.4-8.2)
[2019-12-10 09:20] LABS: BASOPHILS % (AUTO) 1 % (0-10); EOSINOPHILS # (AUTO) 0.2 10^3/uL (0.0-0.3); EOSINOPHILS % (AUTO) 5 % (0-10); HEMATOCRIT 40 % (40-54); HEMOGLOBIN 13.1 G/DL (13.3-17.7); LYMPHOCYTES # (AUTO) 1.1 X 10^3 (1.0-4.0); LYMPHOCYTES % (AUTO) 30 % (12-44); MEAN CORPUSCULAR HEMOGLOBIN 29 PG (25-34); MEAN CORPUSCULAR HGB CONC 33 G/DL (32-36); MEAN CORPUSCULAR VOLUME 89 FL (80-99); MEAN PLATELET VOLUME 9.8 FL (7.4-10.4); MONOCYTES % (AUTO) 0 % (0-12); NEUTROPHILS # (AUTO) 2.3 X 10^3 (1.8-7.8); NEUTROPHILS % (AUTO) 63 % (42-75); PLATELET COUNT 242 10^3/uL (130-400); WHITE BLOOD COUNT 3.6 10^3/uL (4.3-11.0)
[2019-12-10 09:43] LABS: BUN/CREATININE RATIO 12; CARBON DIOXIDE 26 MMOL/L (21-32); CHLORIDE 103 MMOL/L (98-107); CREATININE SERUM 0.89 MG/DL (0.60-1.30); GFR ESTIMATED > 60; GLUCOSE 114 MG/DL (70-105); POTASSIUM 4.3 MMOL/L (3.6-5.0); SODIUM 137 MMOL/L (135-145)
[2019-12-17 09:22] LABS: BASOPHILS % (AUTO) 2 % (0-10); EOSINOPHILS # (AUTO) 0.1 10^3/uL (0.0-0.3); EOSINOPHILS % (AUTO) 4 % (0-10); HEMATOCRIT 35 % (40-54); HEMOGLOBIN 11.7 G/DL (13.3-17.7); LYMPHOCYTES # (AUTO) 1.1 X 10^3 (1.0-4.0); LYMPHOCYTES % (AUTO) 67 % (12-44); MEAN CORPUSCULAR HEMOGLOBIN 30 PG (25-34); MEAN CORPUSCULAR HGB CONC 33 G/DL (32-36); MEAN CORPUSCULAR VOLUME 89 FL (80-99); MEAN PLATELET VOLUME 9.3 FL (7.4-10.4); MONOCYTES # (AUTO) 0.1 X 10^3 (0.0-1.0); MONOCYTES % (AUTO) 8 % (0-12); NEUTROPHILS # (AUTO) 0.3 X 10^3 (1.8-7.8); NEUTROPHILS % (AUTO) 19 % (42-75); PLATELET COUNT 91 10^3/uL (130-400); RED CELL DISTRIBUTION WIDTH 11.6 % (10.0-14.5); WHITE BLOOD COUNT 1.7 10^3/uL (4.3-11.0)
[2019-12-17 09:45] LABS: BUN/CREATININE RATIO 18; CALCIUM 9.2 MG/DL (8.5-10.1); CARBON DIOXIDE 22 MMOL/L (21-32); CHLORIDE 107 MMOL/L (98-107); GFR ESTIMATED > 60; GLUCOSE 109 MG/DL (70-105); POTASSIUM 3.8 MMOL/L (3.6-5.0); SODIUM 140 MMOL/L (135-145)
[2019-12-24 09:19] LABS: BASOPHILS % (AUTO) 0 % (0-10); EOSINOPHILS # (AUTO) 0.1 10^3/uL (0.0-0.3); EOSINOPHILS % (AUTO) 4 % (0-10); HEMATOCRIT 36 % (40-54); HEMOGLOBIN 11.6 G/DL (13.3-17.7); LYMPHOCYTES # (AUTO) 1.5 X 10^3 (1.0-4.0); LYMPHOCYTES % (AUTO) 60 % (12-44); MEAN CORPUSCULAR HEMOGLOBIN 29 PG (25-34); MEAN CORPUSCULAR HGB CONC 32 G/DL (32-36); MEAN CORPUSCULAR VOLUME 91 FL (80-99); MEAN PLATELET VOLUME 8.7 FL (7.4-10.4); MONOCYTES # (AUTO) 0.6 X 10^3 (0.0-1.0); MONOCYTES % (AUTO) 25 % (0-12); NEUTROPHILS # (AUTO) 0.3 X 10^3 (1.8-7.8); NEUTROPHILS % (AUTO) 10 % (42-75); PLATELET COUNT 182 10^3/uL (130-400); RED CELL DISTRIBUTION WIDTH 12.8 % (10.0-14.5); WHITE BLOOD COUNT 2.4 10^3/uL (4.3-11.0)
[2019-12-24 09:38] LABS: ALANINE AMINOTRANSFERASE 41 U/L (0-55); ALBUMIN 4.3 GM/DL (3.2-4.5); ALKALINE PHOSPHATASE 47 U/L (40-136); BILIRUBIN,TOTAL 0.2 MG/DL (0.1-1.0); BUN/CREATININE RATIO 11; CALCIUM 9.2 MG/DL (8.5-10.1); CARBON DIOXIDE 24 MMOL/L (21-32); CHLORIDE 106 MMOL/L (98-107); GFR ESTIMATED > 60; GLUCOSE 89 MG/DL (70-105); MAGNESIUM 2.1 MG/DL (1.6-2.4); POTASSIUM 3.9 MMOL/L (3.6-5.0); SODIUM 139 MMOL/L (135-145)
[2019-12-31 10:05] LABS: BASOPHILS % (AUTO) 1 % (0-10); EOSINOPHILS % (AUTO) 0 % (0-10); HEMATOCRIT 36 % (40-54); LYMPHOCYTES # (AUTO) 1.2 X 10^3 (1.0-4.0); LYMPHOCYTES % (AUTO) 38 % (12-44); MEAN CORPUSCULAR HEMOGLOBIN 30 PG (25-34); MEAN CORPUSCULAR HGB CONC 33 G/DL (32-36); MEAN CORPUSCULAR VOLUME 90 FL (80-99); MEAN PLATELET VOLUME 9.1 FL (7.4-10.4); MONOCYTES % (AUTO) 1 % (0-12); NEUTROPHILS # (AUTO) 1.9 X 10^3 (1.8-7.8); NEUTROPHILS % (AUTO) 61 % (42-75); PLATELET COUNT 313 10^3/uL (130-400); RED CELL DISTRIBUTION WIDTH 12.9 % (10.0-14.5); WHITE BLOOD COUNT 3.2 10^3/uL (4.3-11.0)
[2019-12-31 10:23] LABS: BUN/CREATININE RATIO 18; CALCIUM 9.3 MG/DL (8.5-10.1); CARBON DIOXIDE 26 MMOL/L (21-32); CHLORIDE 101 MMOL/L (98-107); CREATININE SERUM 0.82 MG/DL (0.60-1.30); GFR ESTIMATED > 60; GLUCOSE 100 MG/DL (70-105); POTASSIUM 3.9 MMOL/L (3.6-5.0); SODIUM 137 MMOL/L (135-145)
[2020-01-07 09:22] LABS: BASOPHILS % (AUTO) 2 % (0-10); EOSINOPHILS % (AUTO) 1 % (0-10); HEMATOCRIT 34 % (40-54); HEMOGLOBIN 11.2 G/DL (13.3-17.7); LYMPHOCYTES # (AUTO) 1.2 X 10^3 (1.0-4.0); LYMPHOCYTES % (AUTO) 62 % (12-44); MEAN CORPUSCULAR HEMOGLOBIN 30 PG (25-34); MEAN CORPUSCULAR HGB CONC 33 G/DL (32-36); MEAN CORPUSCULAR VOLUME 91 FL (80-99); MEAN PLATELET VOLUME 9.4 FL (7.4-10.4); MONOCYTES # (AUTO) 0.3 X 10^3 (0.0-1.0); MONOCYTES % (AUTO) 17 % (0-12); NEUTROPHILS # (AUTO) 0.4 X 10^3 (1.8-7.8); NEUTROPHILS % (AUTO) 20 % (42-75); PLATELET COUNT 144 10^3/uL (130-400); RED CELL DISTRIBUTION WIDTH 13.3 % (10.0-14.5)
[2020-01-07 09:37] LABS: BUN/CREATININE RATIO 13; CALCIUM 9.4 MG/DL (8.5-10.1); CARBON DIOXIDE 24 MMOL/L (21-32); CHLORIDE 104 MMOL/L (98-107); CREATININE SERUM 0.77 MG/DL (0.60-1.30); GFR ESTIMATED > 60; GLUCOSE 112 MG/DL (70-105); POTASSIUM 3.8 MMOL/L (3.6-5.0); SODIUM 139 MMOL/L (135-145)
[2020-01-14 09:23] LABS: BASOPHILS # (AUTO) 0.1 10^3/uL (0.0-0.1); BASOPHILS % (AUTO) 1 % (0-10); EOSINOPHILS # (AUTO) 0.2 10^3/uL (0.0-0.3); EOSINOPHILS % (AUTO) 2 % (0-10); HEMATOCRIT 36 % (40-54); HEMOGLOBIN 11.8 G/DL (13.3-17.7); LYMPHOCYTES # (AUTO) 1.8 X 10^3 (1.0-4.0); LYMPHOCYTES % (AUTO) 17 % (12-44); MEAN CORPUSCULAR HEMOGLOBIN 30 PG (25-34); MEAN CORPUSCULAR HGB CONC 33 G/DL (32-36); MEAN CORPUSCULAR VOLUME 92 FL (80-99); MONOCYTES # (AUTO) 1.3 X 10^3 (0.0-1.0); MONOCYTES % (AUTO) 13 % (0-12); NEUTROPHILS # (AUTO) 7.2 X 10^3 (1.8-7.8); NEUTROPHILS % (AUTO) 68 % (42-75); PLATELET COUNT 137 10^3/uL (130-400); RED CELL DISTRIBUTION WIDTH 14.9 % (10.0-14.5); WHITE BLOOD COUNT 10.6 10^3/uL (4.3-11.0)
[2020-01-14 09:47] LABS: ALANINE AMINOTRANSFERASE 41 U/L (0-55); ALBUMIN 4.6 GM/DL (3.2-4.5); ALKALINE PHOSPHATASE 82 U/L (40-136); BILIRUBIN,TOTAL 0.1 MG/DL (0.1-1.0); BUN/CREATININE RATIO 9; CALCIUM 9.6 MG/DL (8.5-10.1); CARBON DIOXIDE 22 MMOL/L (21-32); CHLORIDE 105 MMOL/L (98-107); GFR ESTIMATED > 60; GLUCOSE 103 MG/DL (70-105); POTASSIUM 3.7 MMOL/L (3.6-5.0); SODIUM 139 MMOL/L (135-145); TOTAL PROTEIN 7.5 GM/DL (6.4-8.2)
[2020-01-21 09:38] LABS: BASOPHILS % (AUTO) 1 % (0-10); EOSINOPHILS % (AUTO) 0 % (0-10); HEMATOCRIT 34 % (40-54); LYMPHOCYTES % (AUTO) 40 % (12-44); MEAN CORPUSCULAR HEMOGLOBIN 30 PG (25-34); MEAN CORPUSCULAR HGB CONC 33 G/DL (32-36); MEAN CORPUSCULAR VOLUME 91 FL (80-99); MONOCYTES % (AUTO) 0 % (0-12); NEUTROPHILS # (AUTO) 1.4 X 10^3 (1.8-7.8); NEUTROPHILS % (AUTO) 59 % (42-75); PLATELET COUNT 313 10^3/uL (130-400); RED CELL DISTRIBUTION WIDTH 14.4 % (10.0-14.5); WHITE BLOOD COUNT 2.4 10^3/uL (4.3-11.0)
[2020-01-21 09:55] LABS: BUN/CREATININE RATIO 17; CALCIUM 9.3 MG/DL (8.5-10.1); CARBON DIOXIDE 25 MMOL/L (21-32); CHLORIDE 102 MMOL/L (98-107); CREATININE SERUM 0.76 MG/DL (0.60-1.30); GFR ESTIMATED > 60; GLUCOSE 89 MG/DL (70-105); POTASSIUM 4.6 MMOL/L (3.6-5.0); SODIUM 136 MMOL/L (135-145)
[2020-01-28 09:47] LABS: BASOPHILS % (AUTO) 2 % (0-10); EOSINOPHILS % (AUTO) 1 % (0-10); HEMATOCRIT 30 % (40-54); HEMOGLOBIN 9.5 G/DL (13.3-17.7); LYMPHOCYTES % (AUTO) 54 % (12-44); MEAN CORPUSCULAR HEMOGLOBIN 30 PG (25-34); MEAN CORPUSCULAR HGB CONC 32 G/DL (32-36); MEAN CORPUSCULAR VOLUME 93 FL (80-99); MEAN PLATELET VOLUME 9.8 FL (7.4-10.4); MONOCYTES # (AUTO) 0.4 X 10^3 (0.0-1.0); MONOCYTES % (AUTO) 22 % (0-12); NEUTROPHILS # (AUTO) 0.4 X 10^3 (1.8-7.8); NEUTROPHILS % (AUTO) 22 % (42-75); PLATELET COUNT 94 10^3/uL (130-400); RED CELL DISTRIBUTION WIDTH 15.5 % (10.0-14.5); WHITE BLOOD COUNT 1.9 10^3/uL (4.3-11.0)
[2020-01-28 10:11] LABS: BUN/CREATININE RATIO 19; CALCIUM 9.1 MG/DL (8.5-10.1); CARBON DIOXIDE 23 MMOL/L (21-32); CHLORIDE 109 MMOL/L (98-107); CREATININE SERUM 0.84 MG/DL (0.60-1.30); GFR ESTIMATED > 60; GLUCOSE 96 MG/DL (70-105); MAGNESIUM 2.1 MG/DL (1.6-2.4); POTASSIUM 4.1 MMOL/L (3.6-5.0); SODIUM 141 MMOL/L (135-145)
[~2020-02-01] VITALS: Ht 177.8 cm; Wt 79.4 kg
[~2020-02-01 11:16] MED LIST changes: +ACETAMINOPHEN 500 MG TAB (TYLENOL) CANCER CTR PO PRN; +ALTEPLASE 2 MG (CATHFLO) CANCER CENTER IV ONE; -BARIUM SUSPENSION 2.1% (VANILLA SILQ) 450 ML PO ONE; +BLEOMYCIN IJ SCH; +BLEOMYCIN IV SCH; +CISPLATIN IV SCH; +ETOPOSIDE IV SCH; +FILGRASTIM 300 MCG/ML SQ SCH; +FOSAPREPITANT (CANCER CENTER) 150 MG in NS (IVPB) CANCER CENTER ONLY 150 ML IV SCH; -HOLD METFORMIN - RECEIVED CONTRAST 20 ML VIAL IV SCH; +HYDR-3812 PO; -HYDR-83 PO; -IOHEXOL 350 MG/ML 100 ML (OMNIPAQUE 350) VIAL IV ONE; +MANNITOL IV SCH; +NORMAL SALINE IV SCH; -NS 100 ML (IVPB) BAG IV ONE; +NS IV 1000 ML (CANCER CTR) IV SCH; +NS IV SCH; +[UNRECOGNIZED DRUG - OTHER] IV SCH; +diphenhydrAMINE 25 MG TAB (BENADRYL) CANCER CENTER PO SCH
== END 2020-02-10 | disposition home or self-care (01) ==
LOC: ONC 11:16
PROVIDERS: ATTEND Internal Medicine Hematology & Oncology
DX: Z51.11 Encounter for antineoplastic chemotherapy (principal); C62.11 Malignant neoplasm of descended right testis; Z90.89 Acquired absence of other organs; Z90.79 Acquired absence of other genital organ(s)
CPT/HCPCS: 80053; 83615; 85025; G0463; 36591; 36593; 80048; 82105; 83735; 84702; 96367; 96372; 96375; 96409; 96411; 96413; 96417; 99213; 99214

== ENCOUNTER → 2020-05-05 | Outpatient (CLI) | payer MEDICAID ==
[~2020-05-05] MED LIST changes: -ACETAMINOPHEN 500 MG TAB (TYLENOL) CANCER CTR PO PRN; +ACHD5005 PO; -ALTEPLASE 2 MG (CATHFLO) CANCER CENTER IV ONE; -BLEOMYCIN IJ SCH; -BLEOMYCIN IV SCH; +CATHETER FLUSH 10 ML SYR IV PRN; -CISPLATIN IV SCH; -ETOPOSIDE IV SCH; -FILGRASTIM 300 MCG/ML SQ SCH; -FOSAPREPITANT (CANCER CENTER) 150 MG in NS (IVPB) CANCER CENTER ONLY 150 ML IV SCH; +HOLD METFORMIN - RECEIVED CONTRAST 20 ML VIAL IV SCH; -HYDR-3812 PO; +IOHEXOL 350 MG/ML 100 ML (OMNIPAQUE 350) VIAL IV ONE; -MANNITOL IV SCH; -NORMAL SALINE IV SCH; +NS 100 ML (IVPB) BAG IV ONE; -NS IV 1000 ML (CANCER CTR) IV SCH; -NS IV SCH; -[UNRECOGNIZED DRUG - OTHER] IV SCH; -diphenhydrAMINE 25 MG TAB (BENADRYL) CANCER CENTER PO SCH
--- NOTE | 2020-05-05 10:46 | Diagnostic Imaging Report ---
PROCEDURE: CT chest, abdomen, and pelvis with contrast. TECHNIQUE: Multiple contiguous axial images were obtained through the chest, abdomen, and pelvis after the administration of intravenous contrast. Auto Exposure Controls were utilized during the CT exam to meet ALARA standards for radiation dose reduction. INDICATION: Testicular neoplasm. COMPARISON: Correlation is made with the prior CT from 01/09/2020. FINDINGS: CT CHEST: The right chest wall port has its tip within the SVC. No axillary lymphadenopathy is identified. Residual thymic tissue within the anterior mediastinum is noted. The subcarinal mass measures 5.1 x 4.9 cm compared with 5.2 x 5.1 cm on the prior exam. No hilar lymphadenopathy is identified. No pericardial or pleural fluid is identified. No pulmonary nodule or mass is identified. There is some minimal infiltrate or subsegmental atelectasis in the right lower lobe. IMPRESSION: 1. Stable to perhaps slight decrease in the size of the subcarinal mass when compared to the exam from 01/09/2020. No new mass or evidence of pulmonary metastatic disease is detected. 2. Minimal right lower lobe infiltrate or atelectasis. CT ABDOMEN AND PELVIS: The liver and gallbladder are unremarkable. No liver mass is seen. The pancreas and spleen are unremarkable. No adrenal mass is detected. The kidneys are stable. The aorta is non-aneurysmal. No central retroperitoneal or mesenteric lymphadenopathy is identified. The small and large bowel loops are of normal caliber. There is no free fluid or fluid collection. The bladder and prostate are unremarkable. No inguinal or iliac lymphadenopathy is seen. The bony structures are unremarkable. IMPRESSION: Stable CT abdomen and pelvis since 01/09/2020. No adenopathy or evidence of metastatic disease is detected. Dictated by: Dictated on workstation # [id number]
== END ==
LOC: RAD 09:45
PROVIDERS: ATTEND Specialist
DX: C62.10 Malignant neoplasm of unspecified descended testis (principal)
CPT/HCPCS: 71260; 74177

== ENCOUNTER → 2021-08-15 | Outpatient (CLI) | payer MEDICAID ==
[~2021-08-15] MED LIST changes: -CATHETER FLUSH 10 ML SYR IV PRN; -HOLD METFORMIN - RECEIVED CONTRAST 20 ML VIAL IV SCH; -IOHEXOL 350 MG/ML 100 ML (OMNIPAQUE 350) VIAL IV ONE; -NS 100 ML (IVPB) BAG IV ONE
== END ==
LOC: LABNPT 08:00
PROVIDERS: ATTEND Emergency Medicine
DX: Z20.822 Contact with and (suspected) exposure to COVID-19 (principal)
CPT/HCPCS: 87635